=== PATIENT | male | born 1960 | race African-American/Black ===

== ENCOUNTER 2021-05-08 10:06 | Emergency (ER) | payer OTHER ==
[~2021-05-08] VITALS: Ht 172.7 cm; Wt 61.0 kg
[2021-05-08 10:11] VITALS: BP 145/86
== END 2021-05-08 11:57 | disposition home or self-care (01) ==
LOC: EMS 10:06
DX: F43.20 Adjustment disorder, unspecified (principal); I10 Essential (primary) hypertension
CPT/HCPCS: 99283; Z7502